=== PATIENT | male | born 1940 | race Caucasian/White ===

== ENCOUNTER 2019-05-04 15:35 | Observation (INO) ==
--- NOTE | 2019-05-04 16:52 | PROVIDER DOCUMENTATION ---
HPI-Chest Pain - General Chief Complaint: Chest Pain Stated Complaint: CHEST PAIN Time Seen by Provider: 05/04/19 15:44 Source: patient, family (Son) Allergies/Adverse Reactions: Patient Allergies Allergy/AdvReac Type Severity Reaction Status Date / Time niacin Allergy Severe HIVES Verified 09/18/17 15:02 Home Medications: Home Medication List Medication Instructions Recorded Confirmed Last Taken Type BENAZEpril [Lotensin] 20 mg PO BID 12/26/15 09/18/17 09/18/17 History Hydralazine [Apresoline] 25 mg PO TID 12/26/15 09/18/17 09/18/17 History Levothyroxine [Synthroid] 25 microgm PO QAM 12/26/15 09/18/17 09/18/17 History PRAVAstatin [Pravachol] 80 mg PO QHS 01/05/16 09/18/17 09/17/17 History Apixaban [Eliquis] 5 mg PO BID 12/17/16 09/18/17 09/18/17 History Aspirin 81 mg PO QHS 06/06/17 09/18/17 09/17/17 History Sotalol [Betapace] 80 mg PO BID #60 tablet 06/13/17 09/18/17 09/18/17 Rx Temazepam [Restoril] 7.5 - 15 mg PO QHS #30 capsule 06/13/17 09/18/17 09/17/17 Rx Amlodipine Besylate 5 mg PO DAILY 09/18/17 09/18/17 09/18/17 History - History of Present Illness-CP Location: reports: central (Left chest) Chest Pain Radiation: reports: shoulders (Left shoulder) Quality of Pain: reports: sharp Severity in ED: mild (S/p Nitroglyceirn and ASA) Onset/Duration: abrupt (Around 2 pm today) Timing: improving Context/Activities at Onset: reports: light activity Modifying Factors: worse with: breathing (Improved after Nitroglycerin/ASA) Associated Symptoms: reports: diaphoresis, dizziness, shortness of breath. denies: edema, syncope, vomiting Nitro Today/Relief: provided by EMS Aspirin Treatment Today: provided by EMS Prior Chest Pain/Cardiac Workup: reports: other (CTA) Similar Symptoms Previously?: No Recently Seen Here or By Another Healthcare Provider: No Review of Systems - Adult - REVIEW OF SYSTEMS - ADULT Constitutional: reports: no symptoms reported Eyes: reports: no symptoms reported Ears, Nose, Mouth & Throat: reports: no symptoms reported Cardiovascular: reports: see HPI, chest pain. denies: edema, irregular heart rate, palpitations, syncope Respiratory: reports: shortness of breath. denies: dyspnea on exertion Gastrointestinal: reports: no symptoms reported Genitourinary: reports: no symptoms reported Musculoskeletal: reports: no symptoms reported Integumentary: reports: no symptoms reported Neurological: reports: no symptoms reported Psychiatric: reports: no symptoms reported Endocrine: reports: no symptoms reported Hematologic/Lymphatic: reports: no symptoms reported Allergic/Immunologic: reports: no symptoms reported All Other Systems: Reviewed and Negative Past History - Adult - PAST MEDICAL HISTORY-ADULT Review of Records: reports: Old Records Reviewed, Nursing Assessment Review, Medications Reviewed, Social history reviewed & non-contributory. Major Childhood Illnesses: reports: denies history Cardiovascular: reports: A-Fib, CHF, HTN Respiratory: reports: sleep apnea Gastrointestinal: reports: denies history Genitourinary: reports: other (renal disease) Endocrine/Immune: reports: thyroid disorder - PRIOR SURGERIES/PROCEDURES Surgical/Procedure History: reports: orthopedic (extremity) (TKA), other (cataract r) - IMMUNIZATION STATUS Childhood Immunizations: See Nurse Assessment Flu Vaccine: See Nurse Assessment - FAMILY HISTORY Family History: reviewed, not pertinent - SOCIAL HISTORY Smoking: quit greater than 1 year Substance Use: none/never Alcohol Use Frequency: never Physical Exam-General - PHYSICAL EXAM-ADULT Initial Vital Signs Reviewed: Yes - CONSTITUTIONAL General Appearance: appears well, alert, no apparent distress - EYES Eyes: PERRL/EOMI - HEAD, EARS, NOSE, MOUTH & THROAT HENMT: normocephalic/atraumatic, moist mucous membranes, normal ENT inspection - NECK Neck: non-tender, full range of motion, supple, normal inspection. negative: carotid bruit - RESPIRATORY Respiratory: chest non-tender, lungs clear, normal breath sounds - CARDIOVASCULAR Cardiovascular: normal peripheral pulses, regular rate, rhythm, no edema, no gallop, no JVD, no murmur - GASTROINTESTINAL (ABDOMEN) Abdominal Exam: normal bowel sounds, non tender, soft, no organomegaly - LYMPHATIC Lymphatic: no adenopathy - MUSCULOSKELETAL Back Exam: normal inspection, no CVA tenderness Extremity: normal inspection. negative: no pedal edema, no calf tenderness - SKIN Integumentary: normal color, normal turgor, warm/dry - NEUROLOGIC Neurologic: grossly normal - PSYCHIATRIC Psych/Mental Status: normal mood/affect - HEART Score HEART Score: History: Highly Suspicious (High risk for MACE) HEART Score: ECG: Non-Specific Repolarization Disturbance/LBBB/PM HEART Score: Age: > or = 65 Years HEART Score: Risk Factors for Atherosclerotic Disease: > or = 3 Risk Factors or History of Atherosclerotic Disease HEART Score: Troponin: < or = Normal Limit (High risk) Total HEART Score:: 7 Progress - PLAN OF CARE/RESULTS Progress/Plan/Lab Results: Vital Signs - 8 hr 05/04/19 15:44 05/04/19 15:46 05/04/19 17:30 Temperature 97.7 F Pulse Rate 56 L 58 L 55 L Respiratory Rate 19 21 16 Blood Pressure 160/76 160/76 O2 Sat by Pulse Oximetry 99 99 97 05/04/19 18:34 05/04/19 18:36 Temperature 97.5 F L Pulse Rate 63 Respiratory Rate 17 Blood Pressure 169/76 O2 Sat by Pulse Oximetry 99 96 Laboratory Results - last 24 hr 05/04/19 05/04/19 05/04/19 16:12 16:12 18:25 WBC 8.87 RBC 4.57 L Hgb 12.2 L Hct 37.3 L MCV 81.6 MCH 26.7 L MCHC 32.7 L RDW Std Deviation 13.4 Plt Count 202 MPV 10.1 Immature Gran % (Auto) 0.2 Neut % (Auto) 77.7 H Lymph % (Auto) 13.3 L [place] % (Auto) 8.0 Eos % (Auto) 0.3 Baso % (Auto) 0.5 Immature Gran # (Auto) 0.02 Neut # (Auto) 6.89 H Lymph # (Auto) 1.18 L [place] # (Auto) 0.71 H Eos # (Auto) 0.03 Baso # (Auto) 0.04 PT INR PTT (Actin FS) Sodium 137 Potassium 4.9 Chloride 102 Carbon Dioxide 21 L Anion Gap 14 BUN 27 H Creatinine 1.9 H Estimated GFR/1.73 m2 35 BUN/Creatinine Ratio 14 Glucose 110 H Calculated Osmolality 280 Calcium 8.5 L Total Bilirubin 0.24 AST 21 ALT 18 Alkaline Phosphatase 98 Creatine Kinase 59 Troponin T < 0.010 Total Protein 5.9 L Albumin 3.6 Globulin 2.3 Albumin/Globulin Ratio 1.6 05/04/19 18:25 WBC RBC Hgb Hct MCV MCH MCHC RDW Std Deviation Plt Count MPV Immature Gran % (Auto) Neut % (Auto) Lymph % (Auto) [place] % (Auto) Eos % (Auto) Baso % (Auto) Immature Gran # (Auto) Neut # (Auto) Lymph # (Auto) [place] # (Auto) Eos # (Auto) Baso # (Auto) PT 13.9 INR 1.05 PTT (Actin FS) 31.4 Sodium Potassium Chloride Carbon Dioxide Anion Gap BUN Creatinine Estimated GFR/1.73 m2 BUN/Creatinine Ratio Glucose Calculated Osmolality Calcium Total Bilirubin AST ALT Alkaline Phosphatase Creatine Kinase Troponin T Total Protein Albumin Globulin Albumin/Globulin Ratio Orders Category Date Time Status Admit - [facility] Routine AdmDCTranf 05/04/19 18:03 Active Admit - [facility] Routine AdmDCTranf 05/04/19 19:17 Active Admit Patient To Observation Status Routine AdmDCTranf 05/04/19 19:17 Active Activity - Bed Rest with BRP ORDERED Care 05/04/19 18:05 Active Call Admitting on Arrival AT ADMISSION Care 05/04/19 18:06 Active [facility] DIRECTED Care 05/04/19 18:05 Active Vital Signs Order ROUTINE Care 05/04/19 18:05 Active Z-Document. for Tele Applied ORDERED Care 05/04/19 18:07 Active Heart Healthy Diet Diet 05/04/19 18:07 Active NPO Diet 05/05/19 00:01 Active CHEST-2 VIEWS [RAD] Stat Exams 05/04/19 16:59 Completed BASIC METABOLIC PANEL [CHEM] Routine Lab 05/05/19 06:00 Ordered BNP [PRO B-NATRIURETIC PEPTIDE] Stat Lab 05/04/19 18:25 Received CBC WITH DIFF [HEME] Routine Lab 05/05/19 06:00 Ordered CBC WITH ELECTRONIC DIFF [HEME] Stat Lab 05/04/19 18:25 Completed CK PROFILE [SP CHEM] Stat Lab 05/04/19 16:12 Completed CMP [COMPREHENSIVE METABOLIC PANEL] [CHEM] Stat Lab 05/04/19 16:12 Completed PROTIME WITH INR [COAG] Stat Lab 05/04/19 18:25 Completed PTT [COAG] Stat Lab 05/04/19 18:25 Completed TROPONIN T Q8HR Lab 05/04/19 21:00 Ordered TROPONIN T Q8HR Lab 05/05/19 05:00 Ordered TROPONIN T Q8HR Lab 05/05/19 13:00 Ordered TROPONIN T Stat Lab 05/04/19 16:12 Completed Amlodipine [Norvasc] Med 05/05/19 09:00 Active 5 mg PO DAILY Apixaban [Eliquis] Med 05/04/19 21:00 Ordered 5 mg PO BID Aspirin Med 05/04/19 21:00 Active 81 mg PO QHS BENAZEpril [Lotensin] Med 05/04/19 21:00 Ordered 20 mg PO BID Hydralazine [Apresoline] Med 05/05/19 09:00 Active 25 mg PO TID Levothyroxine [Synthroid] Med 05/05/19 09:00 Ordered 25 microgm PO QAM Lido/Yu Alk/Al&mg Hydrox [G.i. Cocktail] Med 05/04/19 17:10 Discontinued 30 ml PO NOW ONE Morphine Med 05/04/19 18:05 Active 2 mg IV Q2H PRN PRN Ondansetron [Zofran] Med 05/04/19 18:05 Active 4 mg IV Q4H PRN PRN PRAVAstatin [Pravachol] Med 05/04/19 21:00 Ordered 80 mg PO QHS Sotalol [Betapace] Med 05/04/19 21:00 Ordered 80 mg PO BID Temazepam [Restoril] Med 05/04/19 18:55 Active 15 mg PO HS PRN PRN Oxygen Device Routine Oth 05/04/19 18:06 Active Telemetry [OM.EQ] Routine Oth 05/04/19 18:05 Active EKG [EKG] Routine Ther 05/05/19 06:00 Ordered EKG [EKG] Stat Ther 05/04/19 16:57 Draft Transfer/Admit Order [TRANSFER] Routine Transfer 05/04/19 18:08 Ordered Result Diagrams: 05/04/19 18:25 05/04/19 16:12 - XRAY 1 XRAY Study: Chest Impression: See EMR Report ( EXAM: CHEST-2 VIEWS 05/04/2019 HISTORY: Chest pain TECHNIQUE: PA and lateral chest COMMENT: There is a calcified granuloma in the superior segment of the left lower lobe. The heart size and pulmonary vascularity are within normal limits. There are multiple old rib fractures bilaterally. Compared to 09/18/2017 there has been no significant change. IMPR ESSION: No acute disease. Electronically signed by López Salguero 05/04/2019 5:29 PM) - CONSULTS/PCP/HOSPITALIST Notification #1 *Consult/PCP/Hospitalist*: Dr. Escamilla Time Discussed: 17:00 Reason/Comments: CP rule out ACS Consult Disposition: Admit #2 Consult: Dr. Andino (garden consultant for Dr. Carroll) Time Discussed: 17:57 Reason/Comments: Admission for CP r/o ACS Consult Disposition: Will see in ED Departure - Departure Date of Disposition Decision: 05/04/19 Time of Disposition Decision: 19:31 DIAGNOSIS: Chest pain in adult, Paroxysmal A-fib Hypertension Qualifiers: Hypertension type: essential hypertension Qualified Code(s): I10 - Essential (primary) hypertension CKD (chronic kidney disease) Qualifiers: Chronic kidney disease stage: stage 3 (moderate) Qualified Code(s): N18.3 - Chronic kidney disease, stage 3 (moderate) Chronic CHF (congestive heart failure) Qualifiers: Heart failure type: unspecified Qualified Code(s): I50.9 - Heart failure, unspecified Disposition: ADMITTED INPATIENT 09 Certified Medical Emergency: Emergent Condition: Stable Referrals and Follow-Ups: Reagan Carroll MD [Primary Care Provider] - - Critical Care Note This patient required my direct & personal management of CC.: No Attestation - Physician/ GARCIA Attestation Patient care was provided by Advanced Practice Provider:: No The physician spent face to face time with patient:: Yes Advanced Practice Provider documentation review:: Supervising physician onsite and consulted in the evaluation and care of this patient. The physician did have a face to face encounter with the patient.
[2019-05-04] MEDS ORDERED: G.I. COCKTAIL PO ONE (17:10)
--- NOTE | 2019-05-04 17:27 | CARDIOLOGY CONSULTATION ---
DATE: 05/04/2019 CHIEF COMPLAINT: Chest pain. HISTORY OF PRESENT ILLNESS: Mr. Benavides is a 78-year-old gentleman with a history of nonobstructive coronary artery disease, paroxysmal atrial fibrillation, hypertension, and hyperlipidemia. He presented for evaluation of a somewhat sharp pleuritic chest discomfort that began this afternoon around 2 hours after eating lunch. There was no exertional component. It was located in the left mid chest with no real radiation and again no exertional component. There was a throbbing sensation that he seemed to feel with each heartbeat. In addition, there was a pleuritic component. He had no nausea/vomiting or diaphoresis. PAST MEDICAL HISTORY: Significant for: 1. Coronary artery disease. This was identified via a coronary CTA in 2008. Left main had a 30% lesion. Circumflex had 20% to 30% disease. LAD had proximal 20% to 30%, as well as a proximal 40% lesion. There was a 20% to 30% stenosis in the ramus, and the RCA had a 30% narrowing in the proximal and mid vessel. 2. Paroxysmal atrial fibrillation, maintained on Eliquis and sotalol. 3. Hypertension. 4. Hyperlipidemia. 5. Chronic kidney disease. 6. Hypothyroidism. 7. History of TIA. 8. Obstructive sleep apnea. SOCIAL HISTORY: Does not smoke. FAMILY HISTORY: Significant for hypertension. REVIEW OF SYSTEMS: A 10 system review of systems is negative, except for those things mentioned in HPI. PHYSICAL EXAMINATION: He is afebrile, heart rate 56, blood pressure 160/76. Generally, he is in no acute distress. HEENT: Oropharynx is moist. Normal dentition. Eye examination shows pink conjunctivae, white sclerae. Neck examination shows no obvious thyromegaly or thyroid tenderness. Cardiovascularly, he sounds to be in a regular rate and rhythm. He has no obvious murmurs. He has no S3. He has no lower extremity edema. His chest exam is clear to auscultation bilaterally. He has no increased work of breathing. His abdomen is soft, nontender, nondistended. He has no obvious organomegaly. His skin exam is warm and dry throughout without any rashes. Neurologically, he is moving all extremities well. He has no lateralizing deficits. Psychiatric: Alert and oriented and pleasant. Normal mood and affect. PERTINENT DATA: The patient has no chest x-ray or lab data back as of yet. His EKG showed sinus rhythm with no obvious ischemic changes. ASSESSMENT: Mr. Benavides is a 78-year-old gentleman who presented with chest pain with some atypical features. PLAN: Considering the patient's risk factors, it would be reasonable to admit him overnight for observation and consider stress testing in the morning. I will place him n.p.o. cc: Noble Escamilla MD MTDD
--- NOTE | 2019-05-04 17:31 | Diag Imaging Result Doc PS360 ---
EXAM: CHEST-2 VIEWS 05/04/2019 HISTORY: Chest pain TECHNIQUE: PA and lateral chest COMMENT: There is a calcified granuloma in the superior segment of the left lower lobe. The heart size and pulmonary vascularity are within normal limits. There are multiple old rib fractures bilaterally. Compared to 09/18/2017 there has been no significant change. IMPRESSION: No acute disease. Electronically signed by López Salguero 05/04/2019 5:29 PM
[2019-05-04 17:32] LABS: ALB/GLOB RATIO 1.6; ALBUMIN 3.6 g/dL (3.5-5.0); CALCIUM 8.5 mg/dL (8.8-10.2); CREATININE 1.9 mg/dL (0.7-1.2); POTASSIUM 4.9 mmol/L (3.5-5.1); TOTAL BILIRUBIN 0.24 mg/dL (0.20-1.00); TOTAL PROTEIN 5.9 g/dL (6.3-8.3)
[2019-05-04] MEDS ORDERED: ZOFRAN IV PRN (18:05)
[2019-05-04] MEDS ORDERED: MORPHINE IV PRN (18:05)
--- NOTE | 2019-05-04 18:49 | EKG Report ---
Test Performed on : 05/04/2019 3:49:07 PM Test Reason : Chest pain Blood Pressure : / mmHG Vent. Rate : 055 BPM Atrial Rate : 055 BPM P-R Int : 188 ms QRS Dur : 100 ms QT Int : 490 ms P-R-T Axes : 093 053 043 degrees QTc Int : 468 ms Sinus bradycardia. Otherwise normal ECG When compared with ECG of 18-SEP-2017 14:30, Sinus rhythm. has replaced Atrial fibrillation. Vent. rate has decreased BY 31 BPM Unconfirmed Result
[2019-05-04 18:52] LABS: BASO# 0.04 X1000 (0.0-0.2); BASO% 0.5 % (0.0-0.8); EOS# 0.03 X1000 (0.0-0.7); EOS% 0.3 % (0.0-10.0); HEMATOCRIT 37.3 % (42.0-52.0); HEMOGLOBIN 12.2 g/dL (14.0-18.0); IMM GRAN# 0.02 X1000 (0.0-0.04); IMM GRAN% 0.2 % (0.0-0.5); LYMPH# 1.18 X1000 (1.2-3.4); LYMPH% 13.3 % (20.5-51.1); MCH 26.7 PG (27-31); MCHC 32.7 g/dL (33-37); MCV 81.6 FL (81-99); MONO# 0.71 X1000 (0.11-0.59); MPV 10.1 FL (7.4-10.4); NEUT# 6.89 X1000 (1.4-6.5); NEUT% 77.7 % (42.2-75.2); PLT 202 X1000 (130-400); RBC 4.57 XMIL (4.7-6.1); RDW 13.4 % (11.5-14.5); WBC 8.87 X1000 (4.8-10.8)
[2019-05-04 18:55] LABS: INR 1.05; PROTIME 13.9 Seconds (11.0-16.0)
[2019-05-04] MEDS ORDERED: RESTORIL PO PRN (18:55)
[2019-05-04 18:56] LABS: PTT 31.4 Seconds (22.3-41.8)
--- NOTE | 2019-05-04 19:34 | HISTORY AND PHYSICAL ---
CHIEF COMPLAINT: Chest pain. PRESENT ILLNESS: This is the first recent [facility] admission for this 78-year-old white man, patient of Dr. Carroll, who began having substernal chest pain this afternoon at 2 o'clock, causing him to present to the emergency room. Initial evaluation revealed normal EKG, chest x- ray, and laboratory including enzymes. He was seen by Dr. Noble Escamilla in the emergency room, who has evaluated him in the past. His last GXT and CT angiogram was in 2008. At that time, he had 20 to 30 percent disease in multiple vessels. There is history of paroxysmal atrial fibrillation and he was initially on Eliquis then on Coumadin because of poor coverage from his insurance. This was changed back to Eliquis by Dr. Escamilla who worked with his insurance to get a better cost. There is history of hypertension, hyperlipidemia, chronic kidney disease, hypothyroidism, history of TIA, and obstructive sleep apnea. He had no significant shortness of breath or radiation of the pain. There is mild discomfort with deep respiration, but no epigastric tenderness. Dr. Escamilla recommended he stay overnight for further evaluation and GXT study tomorrow. He was made NPO. PAST MEDICAL HISTORY: No recent hospitalization or surgery. He had a left knee replacement several years ago. In December of this year, he fell off a horse and suffered fractures of his left ribs and separation of the AC joint on the left. He has seen Dr. Grover and decision was made to not pursue surgery since range of motion was not significantly reduced and he was having no pain. There is no history of heart attack or stents. SOCIAL HISTORY: No smoking or alcohol usage. He is and lives with his . He does not use CPAP. PRESENT MEDICATIONS: Eliquis 5 mg b.i.d., aspirin 81 mg at bedtime, amlodipine 5 mg daily, hydralazine 25 mg t.i.d., temazepam 15 mg at bedtime p.r.n. sleep, pravastatin 80 mg at bedtime, benazepril 20 mg b.i.d., levothyroxine 25 mcg 1 q.a.m., and sotalol 80 mg b.i.d. ALLERGIES: Niacin. REVIEW OF SYSTEMS: Unremarkable. No history of ulcer, peptic ulcer disease. He has had no vomiting or diarrhea and no fever or cough. He has had no nasal congestion. PHYSICAL EXAMINATION: VITAL SIGNS: Temperature 97.5 degrees, heart rate 63 and regular, respirations 17, blood pressure 169/76, O2 saturation on room air 96%. GENERAL: Patient is a well-developed, well-nourished white man with glasses. Pharynx benign with no erythema or exudate. NECK: Supple with no mass or lymphadenopathy. There is no carotid bruit. HEART: Regular in rate and rhythm with no murmur, rub or gallop. LUNGS: Clear with no rales or rhonchi. There is no chest wall tenderness on the left, and no epigastric tenderness. Bowel sounds are normal. There is no mass or organomegaly. EXTREMITIES: Scar on his left knee secondary to knee replacement. There is no ankle edema. RECTAL AND GENITALIA: Deferred. IMPRESSION: Chest pain, history of coronary artery disease, history of hypercholesterolemia and hypertension. PLAN: Admit for further evaluation including cardiology consultation with Dr. Noble Escamilla. cc: Luis Andino MD
[2019-05-04] MEDS ORDERED: PHENERGAN IV PRN ×2 (20:36→20:45)
[2019-05-04] MEDS ORDERED: SODIUM CHLORIDE 0.9% INJ ONE (20:36)
[2019-05-04] MEDS ORDERED: PNEUMOVAX 23 IM ONE (21:16)
[2019-05-04] MEDS: ASPIRIN PO SCH (21:20)
[2019-05-04] MEDS: BETAPACE PO SCH (21:20)
[2019-05-04] MEDS: ELIQUIS PO SCH (21:20)
[2019-05-04] MEDS: LOTENSIN PO SCH (21:20)
[2019-05-04] MEDS: PRAVACHOL PO SCH (21:21)
[2019-05-05] MEDS: SYNTHROID PO SCH (06:14)
--- NOTE | 2019-05-05 07:07 | EKG Report ---
Test Performed on : 05/05/2019 06:55:34 AM Test Reason : cp Blood Pressure : / mmHG Vent. Rate : 056 BPM Atrial Rate : 056 BPM P-R Int : 186 ms QRS Dur : 102 ms QT Int : 484 ms P-R-T Axes : 086 065 044 degrees QTc Int : 467 ms Sinus bradycardia. Otherwise normal ECG When compared with ECG of 04-MAY-2019 15:49, (Unconfirmed) No significant change was found Unconfirmed Result
[2019-05-05 07:19] LABS: BASO# 0.04 X1000 (0.0-0.2); BASO% 0.8 % (0.0-0.8); EOS# 0.03 X1000 (0.0-0.7); EOS% 0.6 % (0.0-10.0); HEMATOCRIT 33.7 % (42.0-52.0); HEMOGLOBIN 10.8 g/dL (14.0-18.0); LYMPH# 1.22 X1000 (1.2-3.4); LYMPH% 24.4 % (20.5-51.1); MCH 26.2 PG (27-31); MCV 81.8 FL (81-99); MONO# 0.55 X1000 (0.11-0.59); MPV 9.7 FL (7.4-10.4); NEUT# 3.16 X1000 (1.4-6.5); NEUT% 63.2 % (42.2-75.2); PLT 170 X1000 (130-400); RBC 4.12 XMIL (4.7-6.1); RDW 13.2 % (11.5-14.5)
[2019-05-05 07:43] LABS: CALCIUM 8.3 mg/dL (8.8-10.2); CREATININE 1.6 mg/dL (0.7-1.2); POTASSIUM 4.4 mmol/L (3.5-5.1)
[2019-05-05] MEDS: BETAPACE PO SCH ×2 (08:26→20:14)
[2019-05-05] MEDS: ELIQUIS PO SCH ×2 (08:26→20:14)
[2019-05-05] MEDS: APRESOLINE PO SCH ×3 (08:27→16:08)
[2019-05-05] MEDS: LOTENSIN PO SCH ×2 (08:27→20:14)
[2019-05-05] MEDS ORDERED: NORVASC PO SCH (09:00)
[2019-05-05] MEDS ORDERED: LEXISCAN ONE (11:33)
--- NOTE | 2019-05-05 17:57 | Diag Imaging Result Document ---
PROCEDURE NAME: MYOCARDIAL PERF SCAN, STR/REST - 05/05/2019 LEXISCAN SESTAMIBI INTERPRETATION: SUMMARY: The patient was administered 14.8 mCi of technetium-99m sestamibi, after which resting cardiac images were obtained. The patient was subsequently administered Lexiscan 0.4 mg intravenously, after which the heart rate went from 78 beats per minute to 97 beats per minute and the blood pressure went from 146/77 to 116/65. With Lexiscan, the patient denied chest discomfort. Following administration of Lexiscan, the patient was administered 43.2 mCi of technetium 99-m sestamibi after which gated stress cardiac images were obtained. Baseline ECG demonstrated atrial fibrillation. With Lexiscan, there were no diagnostic ST-segment changes. SPECT images were reconstructed in the short, horizontal long, and vertical long axes. Review of these images demonstrated mildly diminished activity in the basal inferior wall on stress images, which appears similar on resting images. No significant reversibility is evident. Gated images demonstrate a calculated left ventricular ejection fraction of 70% with symmetrical wall motion/thickening. CONCLUSIONS: 1. Adequate response to Lexiscan. 2. Clinically negative for chest pain. 3. Electrocardiographically, there were no diagnostic ST-segment changes on ECG following administration of Lexiscan. 4. Lexiscan sestamibi images demonstrate fixed mildly diminished activity in the basal inferior wall with corresponding preserved regional wall motion most consistent with soft tissue/diaphragm attenuation artifact. There is no scintigraphic evidence of inducible myocardial ischemia. Normal left ventricular systolic function demonstrated. cc: MD Jasper Kam MD
--- NOTE | 2019-05-05 18:09 | CARDIOLOGY PROGRESS NOTE ---
DATE: 05/05/2019 SUBJECTIVE: Mr. Benavides is doing well today. He has not had any discomfort in his chest since last night. OBJECTIVE: On physical, afebrile, heart rate 91, blood pressure 110/56. Generally in no acute distress. Cardiovascularly, he sounds to be in a regular rate and rhythm. He has no obvious murmurs. There is no lower extremity edema. Chest sounds clear bilaterally. No increased work of breathing. His abdomen is soft and nontender. PERTINENT DATA: BUN and creatinine yesterday were 27 and 1.9, today 23 and 1.6. Cardiac enzymes were negative. Hematocrit 33 today, yesterday's 37. ASSESSMENT: Mr. Benavides is a 78-year-old white male with paroxysmal atrial fibrillation, who came in with complaints of chest pain. PLAN: His myocardial perfusion scan was low risk. His EKGs have not demonstrated any ischemic changes. At this point, I would recommend medication adjustments. I would discontinue the hydralazine, increase his amlodipine to 10 mg daily. I would continue him on the sotalol as well as the Eliquis per his previous medications. It may be reasonable to consider an outpatient GI evaluation, but at present, it does not appear that this is consistent with acute coronary syndrome, given the negative EKG, negative cardiac enzymes, and low-risk stress tests that he had. From my standpoint, the patient could be discharged when okay with the primary team. cc: MD Jasper Rubio MD
--- NOTE | 2019-05-05 18:25 | EKG Report ---
Test Performed on : 05/05/2019 6:04:04 PM Test Reason : abnormal telemetry reading Blood Pressure : / mmHG Vent. Rate : 076 BPM Atrial Rate : 098 BPM P-R Int : 000 ms QRS Dur : 104 ms QT Int : 452 ms P-R-T Axes : 000 048 016 degrees QTc Int : 508 ms Atrial fibrillation. Prolonged QT Abnormal ECG When compared with ECG of 05-MAY-2019 06:55, (Unconfirmed) Atrial fibrillation. has replaced Sinus rhythm. Unconfirmed Result
[2019-05-05] MEDS: PRAVACHOL PO SCH (20:14)
[2019-05-05] MEDS: ASPIRIN PO SCH (20:14)
--- NOTE | 2019-05-05 21:34 | PROGRESS NOTE ---
DATE: 05/05/2019 SUBJECTIVE: A 78-year-old, white male, admitted to the hospital with precordial chest pain last night by Dr. Andino. Patient was seen by money market dealer. The patient is well known to Dr. Escamilla. He has known history of PAF, previous catheterization was noncritical ischemic heart disease. Denies any shortness of breath, PND, orthopnea. PAST MEDICAL HISTORY: Reviewed. PAST SURGICAL HISTORY: Reviewed. MEDICINES: Reviewed. ALLERGIES: Niacin. PHYSICAL EXAMINATION: Temperature is 97 degrees, pulse 91, blood pressure 110/56, and 94% on room air.HEENT: Within normal limits. Neck: Supple. No lymphadenopathy. Chest: Clear. Heart sounds are regular, nonreproducible. Belly is soft, nontender. Good bowel sounds. No neurological deficits. INVESTIGATIONS: CBC: White cell count 5, hematocrit 33.7, platelet 170,000. SMA 7: BUN 23, creatinine 1.6. Cardiac enzymes were negative. ASSESSMENT AND PLAN: 1. Azotemia. Stable. 2. Atrial fibrillation. On sotalol. 3. Chest pain ruled out. Scheduled for stress test. 4. Hyperlipidemia. On Pravachol. 5. Paroxysmal atrial fibrillation. On Eliquis and sotalol, and will follow up on the stress test. Appreciate Cardiology consult. Continue present treatment. LEVEL OF DOCUMENTATION: 35 minutes. cc: Jasper Carroll MD
[2019-05-06] MEDS: SYNTHROID PO SCH (06:18)
[2019-05-06 08:15] VITALS: BP 127/74
[2019-05-06] MEDS ORDERED: PREVNAR 13 IM ONE (08:17)
[2019-05-06] MEDS: ELIQUIS PO SCH (08:26)
[2019-05-06] MEDS: LOTENSIN PO SCH (08:26)
[2019-05-06] MEDS: BETAPACE PO SCH (08:27)
[2019-05-06] MEDS ORDERED: NORVASC PO SCH (09:00)
== END 2019-05-06 10:44 | disposition home or self-care (01) ==
LOC: SUPCPDRO → ED 15:35 → DIRADM 18:03 → OPS 18:03 → 3N 18:03
PROVIDERS: ADMIT Internal Medicine; ATTEND Internal Medicine